=== PATIENT | female | born 1985 | race Caucasian/White ===

== ENCOUNTER 2022-05-18 15:34 | Emergency (ER) | payer BC, SELFPAY ==
--- NOTE | ~2022-05-18 | XR_ITS ---
EXAMINATION: XR heel RT min 2V INDICATION: Right heel pain TECHNIQUE: Two views of the right calcaneus are obtained. COMPARISON: None available FINDINGS: There is mild soft tissue swelling. Posterior and plantar calcaneal enthesophytes are noted . No fracture is identified. IMPRESSION: 1. Soft tissue swelling without acute osseous abnormality. Reviewed, dictated and finalized at location A.
[2022-05-18 15:54] VITALS: BP 128/89; PULSE 93; RESP 18; TEMP 36.3; O2SAT 98
--- NOTE | 2022-05-18 16:20 | ED.GENADULT ---
HPI - General Adult General Chief complaint: Extremity Injury, Lower Stated complaint: heel pain History of Present Illness HPI narrative: Patient is a 36-year-old female who presents to the express care via POV for evaluation of right heel pain that began 2 days ago. Pain worsens with walking and improves with rest. Ice provides some relief. Of note, patient walks approximately 10 hours a day and denies injury. Related Data Allergies Allergy/AdvReac Type Severity Reaction Status Date / Time No Known Allergies Allergy Verified 05/18/22 16:09 Review of Systems Review of Systems: Pertinent negatives: fever, chills, sweats, change in appetite, poor p.o. intake, malaise, calf tenderness, skin color changes, rash, warmth, swelling, numbness, tingling, loss of sensation, deformity, decreased range of motion, weakness, difficulty with ambulation/coordination, nausea, vomiting, lymphadenopathy, shortness of breath, chest pain, heart palpitations, and heart murmur. PMFSH Social History Social History Smoking status: Never smoker Alcohol intake: current Exam Narrative: GENERAL: Well-appearing, well-nourished, and in no acute distress. HEAD: Normocephalic, atraumatic. NECK: Supple. No Lymphadenopathy or nuchal rigidity appreciated. CHEST: Bilateral lung espinoza are clear to auscultation. No respiratory distress. No evidence of cough or pleuritic cp upon examination. HEART: Regular rate and rhythm. No murmur, gallop, or rub heard. EXTREMITIES: Moderate pain palpated over right Achilles tendon. No evidence of injury, decreased ROM, swelling, cyanosis, hematoma, laceration, abrasion, deformity, rash, or puncture. No evidence of pain with active/passive ROM. No evidence of dislocation, ligament laxity, effusion, or pain at rest. Pulses palpable at 2+, strength 5/5, and cap refill < 3 seconds in affected extremity. DTRs normal. Gait normal. SKIN: Warm, dry, no rash. NEURO: No focal deficits. Alert and oriented x3. SPECIAL OBSERVATIONS: Smiling. Laughing. No evidence of discomfort. Course Course Level of Care: Express Care Visit Vital Signs Vital signs: Vital Signs Temperature 97.3 F L 05/18/22 15:54 Pulse Rate 93 05/18/22 15:54 Respiratory Rate 18 05/18/22 15:54 Blood Pressure 128/89 08/19/22 15:54 Pulse Oximetry 98 05/18/22 15:54 Oxygen Delivery Room Air 05/18/22 15:54 Temperature 97.3 F L 05/18/22 15:54 Pulse Rate 93 05/18/22 15:54 Respiratory Rate 18 05/18/22 15:54 Blood Pressure 128/89 05/18/22 15:54 Pulse Oximetry 98 05/18/22 15:54 Oxygen Delivery Room Air 05/18/22 15:54 Medical Decision Making Differential Diagnosis Differential Diagnosis: Achilles tendinitis, Planter fasciitis, sprain, strain Vital Signs Vital Signs: Vital Signs Temperature 97.3 F L 05/18/22 15:54 Pulse Rate 93 05/18/22 15:54 Respiratory Rate 18 05/18/22 15:54 Blood Pressure 128/89 05/18/22 15:54 Pulse Oximetry 98 05/18/22 15:54 Oxygen Delivery Room Air 05/18/22 15:54 Temperature 97.3 F L 05/18/22 15:54 Pulse Rate 93 05/18/22 15:54 Respiratory Rate 18 05/18/22 15:54 Blood Pressure 128/89 05/18/22 15:54 Pulse Oximetry 98 05/18/22 15:54 Oxygen Delivery Room Air 05/18/22 15:54 Imaging Data My impression: Heel spur Radiologist's impression: Soft tissue swelling without acute osseous abnormality. Posterior and plantar calcaneal enthyesophytes are noted. Critical Care Time Critical Care Time Critical Care Time: No Discharge Plan Discharge Clinical Impression: Bone spur Achilles tendinitis Qualifiers: Laterality: right Qualified Code(s): M76.61 - Achilles tendinitis, right leg Patient Disposition: Home, Self-Care Condition: Stable Instructions: Achilles Tendinitis (ED), Heel Spur (ED) Additional Instructions: --See discharge instruction for detailed information. --You may take [id number] Tylenol for pain,
== END 2022-05-18 16:40 | disposition home or self-care (01) ==
PROVIDERS: Emergency Provider Nurse Practitioner Family
DX: M77.31 Calcaneal spur, right foot (principal); M76.61 Achilles tendinitis, right leg
CPT/HCPCS: 73650; 99213; G0463

== ENCOUNTER 2023-03-25 17:04 | Emergency (ER) | payer BC, SELFPAY ==
[2023-03-25 17:20] VITALS: BP 136/86; PULSE 98; RESP 20; TEMP 36.6; O2SAT 100
--- NOTE | 2023-03-25 17:26 | ED.BACK ---
HPI - Back Pain/Injury General Chief Complaint: Back Pain/Injury Stated Complaint: back pain Time Seen by Provider: 03/25/23 17:15 Source: patient Mode of arrival: ambulatory Limitations: no limitations History of Present Illness HPI Narrative: Patient is a 37-year-old female that presents with right scapular pain that shoots down the right arm. 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 Patient states she noticed pain starting 2 weeks ago but was still able to move normally. Patient states she woke up today with severe pain with any movement to right arm. Patient has taken 2 Aleve with no relief. Patient denies any numbness tingling or weakness to arm or hand. Denies any spinal pain or neck pain. Related Data Allergies Allergy/AdvReac Type Severity Reaction Status Date / Time No Known Allergies Allergy Verified 03/25/23 17:27 Review of Systems Review of Systems: All systems reviewed & are unremarkable except as noted in HPI and below Constitutional: Constitutional: Denies body ache(s), Denies chills, Denies fatigue, Denies fever(s), Denies headache(s), Denies malaise and Denies weakness Eyes: Eyes: Denies blurry vision, Denies irritation and Denies loss of vision ENT: Denies otalgia, Denies headache(s), Denies nasal discharge, Denies sinus pain and Denies sore throat Cardiovascular: Cardiovascular: Denies chest pain, Denies irregular heart rhythm and Denies dyspnea Respiratory: Respiratory: Denies dyspnea Gastrointestinal: Gastrointestinal: Denies abdominal pain, Denies melena, Denies hematochezia, Denies diarrhea, Denies nausea and Denies vomiting Genitourinary: Genitourinary: Reports no additional female genitourinary complaints Musculoskeletal: Musculoskeletal: Denies back pain, Denies myalgias and Reports arthralgias Integumentary/Breasts: Skin/Breast: Denies pruritus and Denies rash Neurologic: Denies headache(s), Denies loss of vision and Denies weakness Psychiatric: Psychiatric: Reports no additional psychiatric complaints Endocrine: Endocrine: Denies fatigue PMFSH Social History Social History Smoking status: Never smoker Alcohol intake: current Comments At time of signature, agree with nursing past medical, surgical, social and family history. There is no relevant family history pertinent to the presenting complaint. Exam Const: General: cooperative, healthy appearing, comfortable, no acute distress and well nourished Nutritional Appearance: well nourished Orientation/consciousness: patient oriented x3 Limitations: no limitations HENMT: Head: normal to inspection, normocephalic and atraumatic Ears: hearing grossly normal bilaterally and external ears normal Face/Nose/Sinus: Normal external nose present, normal facial exam and face symmetric Face and sinus: normal facial exam and face symmetric Mouth: Yes lip normal Eyes: General: appearance normal, both eyes and all related structures Alignment and Position: alignment normal and position normal Periorbital: periorbital findings normal Eyelids: eyelids normal Pupils: Equal, round and reactive pupils present EOM: EOMs intact bilaterally Neck: Neck: normal visual inspection, full ROM and supple Chest: Chest palpation & inspection: normal inspection of the chest Resp: Effort & Inspection: normal respiratory effort and able to speak in complete sentences Auscultation: clear to auscultation bilaterally Cardio: Rate: regular rate Rhythm: regular rhythm Heart sounds: S1 normal heart sound present and S2 normal heart sound present GI: Inspection: normal to inspection Back/Spine/Pelvis: Cervical Spine: normal cervical lordosis and cervical ROM normal Thoracic/Lumbar Spine: thoracic and lumbar spine normal to inspection, No paraspinal muscle tenderness, No thoracic spinal tenderness and No lumbar spinal tenderness Skin: General skin exam: normal color and no rashes or lesions noted Neuro: General: patient oriente
== END 2023-03-25 17:57 | disposition home or self-care (01) ==
PROVIDERS: Emergency Provider Nurse Practitioner Family; PCP Family Medicine
DX: S46.911A Strain of unspecified muscle, fascia and tendon at shoulder and upper arm level, right arm, initial encounter (principal); X58.XXXA Exposure to other specified factors, initial encounter
CPT/HCPCS: 99213; G0463

== ENCOUNTER → 2023-04-03 15:09 | Outpatient (CLI) | payer BC, SELFPAY ==
--- NOTE | ~2023-04-03 | XR_ITS ---
XR cervical spine 4-5V DATE: 04/03/2023 15:44 INDICATION: Neck pain TECHNIQUE: Standing AP, lateral, swimmer's, open-mouth and bilateral oblique views COMPARISON: None FINDINGS: C1 and C2 are normally aligned and the odontoid process is intact. No fracture or dislocati on or locked facet. No prevertebral soft tissue swelling. Cervical interspaces are preserved. No abno rmal bony encroachment upon the neural foramina is detected. IMPRESSION: Negative Reviewed, dictated and finalized at location A. IMPRESSION: Negative
== END ==
PROVIDERS: PCP Physician Assistant; Visit Provider Physician Assistant
DX: M54.2 Cervicalgia (principal)
CPT/HCPCS: 72050